=== PATIENT | male | born 1995 | race African-American/Black ===

== ENCOUNTER 2021-02-02 00:51 | Emergency (ER) | payer MEDICAID ==
[~2021-02-02] VITALS: Ht 190.5 cm; Wt 68.0 kg
[2021-02-02 00:53] VITALS: BP 132/73
[2021-02-02] MEDS ORDERED: ALBUTEROL 6.7GM HFA INHALER ORI ONE (01:30)
[2021-02-02] MEDS ORDERED: ACETAMINOPHEN 325MG TABLET PO ONE (01:30)
[2021-02-02] MEDS ORDERED: LIDOCAINE 5% PATCH TOP SCH (01:30)
[2021-02-02] MEDS ORDERED: ALBU6.7H9 INH (04:14)
[2021-02-02] MEDS ORDERED: IBUP-2029 MT (04:14)
== END 2021-02-02 05:16 | disposition home or self-care (01) ==
LOC: ER 00:51
DX: S80.02XA Contusion of left knee, initial encounter (principal); M25.531 Pain in right wrist; R07.89 Other chest pain; W18.39XA Other fall on same level, initial encounter; Y93.89 Activity, other specified; Y92.89 Other specified places as the place of occurrence of the external cause; Y99.8 Other external cause status; Z79.899 Other long term (current) drug therapy
CPT/HCPCS: 29125; 71100; 73110; 73130; 73562; 93005; 99284; Z7610